=== PATIENT | female | born 1985 | race Caucasian/White ===

== ENCOUNTER 2018-07-22 09:41 | Inpatient (IN) | payer BC ==
[2018-07-22] MEDS ORDERED: CARBOPROST 250 MCG INJ IM (10:30)
[2018-07-22] MEDS ORDERED: METHYLERGONOVINE 0.2 MG INJ IM (10:30)
[2018-07-22] MEDS ORDERED: MISOPROSTOL 200 MCG TAB PR (10:30)
[2018-07-22] MEDS ORDERED: IBUPROFEN 600 MG TAB PO (10:30)
[2018-07-22] MEDS ORDERED: OXYTOCIN 30 UNITS/LR 500 ML IV (10:30)
[2018-07-22] MEDS ORDERED: LIDOCAINE 1% (MPF) 30 ML INJ INJ (10:30)
[2018-07-22 11:19] LABS: ADD MAN DIFF? NO
[2018-07-22] MEDS: BUTORPHANOL 2 MG INJ IV (11:25)
[2018-07-22] MEDS: LACTATED RINGER'S 1,000 ML IV ×5 (11:25→21:38)
[2018-07-22 11:43] LABS: INR 0.88; PT RATIO 0.9
[2018-07-22 11:44] LABS: BASOPHILS % 0.2 % (0.0-2.0); EOSINOPHILS % 0.1 % (0.0-7.0); HEMATOCRIT 35.7 % (37.0-47.0); HEMOGLOBIN 12.4 g/dl (12.0-16.0); LYMPHOCYTES # 1.2 10^3/ul (0.8-2.9); LYMPHOCYTES % 7.2 % (15.0-51.0); MEAN CORPUSCULAR HEMOGLOBIN 29.5 pg (29.0-33.0); MEAN CORPUSCULAR HGB CONC 34.7 g/dl (32.0-37.0); MEAN CORPUSCULAR VOLUME 84.8 fl (82.0-101.0); MEAN PLATELET VOLUME 12.4 fl (7.4-10.4); MONOCYTE # 0.9 10^3/ul (0.3-0.9); MONOCYTES % 5.4 % (0.0-11.0); NEUTROPHIL # 14.4 10^3/ul (1.6-7.5); NEUTROPHILS % 86.5 % (39.0-77.0); PARTIAL THROMBOPLASTIN TIME 29.2 Sec (23.0-35.0); PLATELET COUNT 170 10^3/UL (140-415); RED BLOOD COUNT 4.21 10^6/ul (4.20-5.40); RED CELL DISTRIBUTION WIDTH 12.5 % (11.5-14.5)
[2018-07-22 11:44] LABS: WHITE BLOOD COUNT 16.7 10^3/ul (4.8-10.8)
[2018-07-22] MEDS ORDERED: NALOXONE (0.4 MG/ML) INJ IV (12:00)
[2018-07-22] MEDS ORDERED: ZOLPIDEM 5 MG TAB PO (12:00)
[2018-07-22] MEDS ORDERED: DIPHENHYDRAMINE 50 MG INJ IV (12:00)
[2018-07-22] MEDS ORDERED: HYDROmorphONE 0.5 MG/0.5 ML SYG IV ×2 (12:00)
[2018-07-22] MEDS ORDERED: KETOROLAC 30 MG INJ IV (12:00)
[2018-07-22] MEDS: AMPICILLIN 2 GM/NS (PMX) 100 ML IV (12:21)
[2018-07-22] MEDS: ONDANSETRON 4 MG INJ IV (13:52)
[2018-07-22] MEDS: AMPICILLIN 1 GM/NS (PMX) 50 ML IV ×3 (14:14→22:32)
[2018-07-22] MEDS: OXYTOCIN 30 UNITS/LR 500 ML IV (14:22)
[2018-07-22 15:13] LABS: RAPID PLASMA REAGIN NONREACTIVE (NR)
[2018-07-22] MEDS: FENTAnyl 2MCG/ML-ROPIV 0.2% 100 ML BAG EPI (21:38)
[2018-07-22 22:11] LABS: HEPATITIS B SURFACE ANTIGEN NEGATIVE (NEGATIVE)
[2018-07-23] MEDS: LACTATED RINGER'S 1,000 ML IV ×2 (00:39→04:09)
[2018-07-23] MEDS: ACETAMINOPHEN 325 MG TAB PO (01:14)
[2018-07-23] MEDS: AMPICILLIN 1 GM/NS (PMX) 50 ML IV ×2 (02:20→06:30)
[2018-07-23] MEDS: FENTAnyl 2MCG/ML-ROPIV 0.2% 100 ML BAG EPI (04:30)
[2018-07-23] MEDS: OXYTOCIN 30 UNITS/LR 500 ML IV ×3 (06:53→11:26)
[2018-07-23] MEDS ORDERED: OXYTOCIN 30 UNITS/LR 500 ML IV (07:30)
[2018-07-23] MEDS ORDERED: CARBOPROST 250 MCG INJ IM (07:30)
[2018-07-23] MEDS ORDERED: METHYLERGONOVINE 0.2 MG INJ IM (07:30)
[2018-07-23] MEDS ORDERED: MISOPROSTOL 200 MCG TAB PR (07:30)
[2018-07-23] MEDS: LACTATED RINGER'S 1,000 ML IV* ×2 (08:50→15:30)
[2018-07-23] MEDS: BENZOCAINE 20% 56 ML SPRAY TOP (11:09)
[2018-07-23] MEDS: LANOLIN 7 GM TUBE TOP (11:30)
[2018-07-23] MEDS: IBUPROFEN 600 MG TAB PO ×2 (11:30→17:45)
[2018-07-23] MEDS: WITCH HAZEL/GLYCERIN PAD PR (16:56)
[2018-07-23] MEDS: DIBUCAINE 1% 30 GM OINT TOP (16:59)
[2018-07-24] MEDS: IBUPROFEN 600 MG TAB PO ×4 (05:44→17:41)
[2018-07-24 08:16] LABS: ADD MAN DIFF? NO
[2018-07-24 08:21] LABS: WHITE BLOOD COUNT 16.5 10^3/ul (4.8-10.8)
[2018-07-24 08:21] LABS: BASOPHILS % 0.2 % (0.0-2.0); EOSINOPHILS # 0.1 10^3/ul (0.0-0.5); EOSINOPHILS % 0.6 % (0.0-7.0); HEMATOCRIT 25.2 % (37.0-47.0); HEMOGLOBIN 8.5 g/dl (12.0-16.0); LYMPHOCYTES # 1.9 10^3/ul (0.8-2.9); LYMPHOCYTES % 11.6 % (15.0-51.0); MEAN CORPUSCULAR HEMOGLOBIN 29.4 pg (29.0-33.0); MEAN CORPUSCULAR HGB CONC 33.7 g/dl (32.0-37.0); MEAN CORPUSCULAR VOLUME 87.2 fl (82.0-101.0); MEAN PLATELET VOLUME 12.2 fl (7.4-10.4); MONOCYTE # 1.2 10^3/ul (0.3-0.9); NEUTROPHIL # 13.2 10^3/ul (1.6-7.5); NEUTROPHILS % 79.8 % (39.0-77.0); PLATELET COUNT 133 10^3/UL (140-415); RED BLOOD COUNT 2.89 10^6/ul (4.20-5.40)
[2018-07-24] MEDS: HYDROCODONE/APAP (5/325) TAB PO (11:51)
[2018-07-25] MEDS: IBUPROFEN 600 MG TAB PO ×3 (00:03→11:38)
[2018-07-25] MEDS: DIPHTH/TET/ACEL PERTUSS (ADULT) 0.5 ML VIAL IM* (09:48)
== END 2018-07-25 14:16 | disposition home or self-care (01) | DRG 807 ==
LOC: OBT 09:41 → PP1 07-23 08:50 → L-D 09:41 → OBT 10:29 → L-D 10:20
PROVIDERS: Obstetrics & Gynecology
PROC: 4A1HXCZ Monitoring of Products of Conception, Cardiac Rate, External Approach (ICD-10-PCS; 2018-07-22)
PROC: 10E0XZZ Delivery of Products of Conception, External Approach (ICD-10-PCS; principal; 2018-07-23)
PROC: 0KQM0ZZ Repair Perineum Muscle, Open Approach (ICD-10-PCS; 2018-07-23)
PROC: 3E0234Z Introduction of Serum, Toxoid and Vaccine into Muscle, Percutaneous Approach (ICD-10-PCS; 2018-07-25)
DX: O48.0 Post-term pregnancy (principal); Z37.0 Single live birth; Z3A.40 40 weeks gestation of pregnancy; Z23 Encounter for immunization
CPT/HCPCS: 62319; 76815; 85025; 85610; 85730; 86592; 86850; 86900; 86901; 87340; 90715; 99464